=== PATIENT | male | born 1955 | race Caucasian/White ===

== ENCOUNTER → 2022-08-01 | Day surgery (SDC) | payer MEDICARE, OTHER ==
[~2022-08-01] VITALS: Ht 167.6 cm; Wt 99.8 kg
[~2022-08-01] MED LIST: CYMBALTA60 MG PO; DICYCLOMINE HYD10 MG PO; FLOMAX0.4 MG PO; ONDANSETRON HYDR4 M1 PO; PROTONIX40 MG PO; TOPROL XL50 M1 PO
[2022-08-01 08:00] VITALS: BP 129/64
[2022-08-01 09:08] VITALS: BP 80/36
[2022-08-01 09:23] VITALS: BP 92/41
[2022-08-01 09:29] VITALS: BP 99/46
[2022-08-01 09:35] VITALS: BP 101/50
[2022-08-01 09:38] VITALS: BP 119/75
== END | disposition home or self-care (01) ==
LOC: SDC 07-29 13:15
PROVIDERS: ATTEND Surgery
DX: R19.7 Diarrhea, unspecified (principal); K62.1 Rectal polyp; K29.50 Unspecified chronic gastritis without bleeding; I10 Essential (primary) hypertension; K21.9 Gastro-esophageal reflux disease without esophagitis; F17.290 Nicotine dependence, other tobacco product, uncomplicated; Z90.49 Acquired absence of other specified parts of digestive tract; Z98.890 Other specified postprocedural states

== ENCOUNTER → 2022-09-02 | Outpatient (CLI) | payer MEDICARE, OTHER | END | disposition home or self-care (01) | LOC: NM 08-26 07:00 | PROVIDERS: ATTEND Surgery | DX: R11.0 Nausea (principal) ==